=== PATIENT | male | born 1990 | race Caucasian/White ===

== ENCOUNTER 2021-01-29 18:55 | Emergency (ER) | payer SELFPAY ==
--- NOTE | ~2021-01-29 | XR_ITS ---
Examination: XR hand LT 2V, XR hand RT 2V Indication: r/o fb Comparison: No pertinent prior studies are currently available for comparison. Technique: 3 plain film views of each hand obtained. Findings: Bones are normal anatomic alignment. I do not appreciate any acute fracture or dislocation. No bony destructive lesions or periosteal reaction. No radiopaque foreign body seen. No soft tissue gas. XR/XR hand LT 2V Impression: No acute bony abnormality. No radiopaque foreign body seen.
--- NOTE | ~2021-01-29 | XR_ITS ---
Examination: XR hand LT 2V, XR hand RT 2V Indication: r/o fb Comparison: No pertinent prior studies are currently available for comparison. Technique: 3 plain film views of each hand obtained. Findings: Bones are normal anatomic alignment. I do not appreciate any acute fracture or dislocation. No bony destructive lesions or periosteal reaction. No radiopaque foreign body seen. No soft tissue gas. XR/XR hand RT 2V Impression: No acute bony abnormality. No radiopaque foreign body seen.
[2021-01-29 19:27] VITALS: BP 105/69; PULSE 62; RESP 18; TEMP 37; O2SAT 98; BMI 23.0
--- NOTE | 2021-01-29 20:36 | ED_ITS ---
HPI - Extremity Problem General Chief complaint: Extremity Injury, Upper Stated complaint: glass in finger Time Seen by Provider: 01/29/21 20:03 Source: patient Mode of arrival: ambulatory Limitations: no limitations History of Present Illness HPI Narrative: 30-year-old male here with multiple complaints. Patient tells me that he feels like he has a piece of glass in his right index finger. He was removing a piece of glass from his girlfriend's foot when he feels like it went into his finger. He thinks it has been there for days. He also has a splinter on the left palm. He is unsure how long this has been there for. Related Data Allergies Allergy/AdvReac Type Severity Reaction Status Date / Time No Known Allergies Allergy Verified 01/29/21 19:26 Review of Systems Review of Systems: Yes all other systems are reviewed and are negative Constitutional: Constitutional: Reports no additional constitutional complaints, Denies body ache(s), Denies chills, Denies fever(s), Denies headache(s) and Denies weakness Eyes: Eyes: Reports no additional eye complaints and Denies change in vision ENT: Reports system reviewed and no additional complaints, except as documented, Denies dizziness, Denies headache(s), Denies nasal congestion, Denies nasal discharge and Denies neck pain Cardiovascular: Cardiovascular: Reports no additional cardiovascular complaints, Denies chest pain, Denies leg edema and Denies dyspnea Respiratory: Respiratory: Reports no additional respiratory complaints, Denies cough and Denies dyspnea Gastrointestinal: Gastrointestinal: Reports no additional gastrointestinal complaints, Denies abdominal pain, Denies diarrhea, Denies nausea and Denies vomiting Genitourinary: Genitourinary: Denies urinary incontinence Musculoskeletal: Musculoskeletal: Reports no additional musculoskeletal complaints, Denies back pain, Denies arthralgias, Denies joint swelling, Denies neck pain, Denies numbness and Denies tingling Integumentary/Breasts: Skin/Breast: Reports system reviewed and no additional complaints, except as docu and Denies rash Neurologic: Reports system reviewed and no additional complaints, except as documented, Denies Abnormal speech present, Denies dizziness, Denies headache(s), Denies numbness, Denies tingling and Denies weakness [facility] Past Medical History Attestation statement: The following information was validated with the patient. Source: old records reviewed and nursing notes reviewed Medical History Asthma Social History Social History Advance Directives: No Advance Directives Information Provided: No Physical Exam Vital Signs: Vital Signs: Last Vital Signs Temp 98.6 F 01/29/21 19:27 Pulse 62 01/29/21 19:27 Resp 18 01/29/21 19:27 BP 105/69 01/29/21 19:27 Pulse Ox 98 01/29/21 19:27 Body Mass Index 23.0 Const: General: cooperative, healthy appearing, comfortable and no acute dis tress Orientation/consciousness: patient oriented x3 Limitations: no limitations HENMT: Head: Yes normal to inspection Ears: hearing grossly normal bilaterally General nose exam: Normal external nose present Face and sinus: Yes normal facial exam Mouth: Normal oral and palatal mucosa present Throat: Yes posterior oropharynx normal Eyes: General: appearance normal, both eyes and all related structures Pupils: Equal, round and reactive pupils present Neck: Neck: Yes normal visual inspection Chest: Chest palpation & inspection: normal inspection of the chest Resp: Effort & Inspection: normal respiratory effort Auscultation: clear to auscultation bilaterally Cardio: Rate: regular rate Rhythm: regular rhythm Peripheral pulses: Peripheral pulses 2+ throughout GI: Inspection: Yes normal to inspection Palpation (GI): Soft to palpation and nontender Auscultation: normal bowel sounds Back/Spine/Pelvis: Thoracic/Lumbar Spine: thoracic and lumbar spine normal to inspection Skin: General skin exam: no rashes or lesions noted Neuro: General: patient oriented x3, no focal motor deficits and normal sensation to monofilament Cranial nerves: Yes Equal, round and reactive pupils present Cognition (Neuro): normal cognition Speech: No Abnormal speech present Gait exam (Neuro): Normal gait present Motor exam (neuro): 5/5 motor strength present throughout Extrem: Other: On the right hand over the volar aspect of the right index finger there is a small abrasion. There is no palpable foreign body. Full range of motion with no difficulty To the left palmar aspect there is a small splinter in the subcutaneous tissue. No local swelling, redness or drainage General: Yes normal to inspection Course Course Course Narrative: Patient here with concern over foreign body to right index finger and left hand. X-rays of the right hand show no foreign body. On clinical exam there is no findings of foreign body. The left hand is negative for foreign body. There is a small superficial wooden splinter to the left palmar aspect. I did explain to the patient that he can use warm compresses and remove this at home with tweezers. If not the body will expel it naturally. Reviewed worrisome signs and symptoms and when to return to the emergency department. Comfortable discharge home. MDM - Extremity (Nontraumatic) Medical Records Attestation: I reviewed the patient's medical records. Lab Data Attestation: I reviewed the patient's lab results. Imaging Data hand x-ray left : Attestation: I personally reviewed and interpreted this imaging study as follows: Radiologist's impression: Findings: Bones are normal anatomic alignment. I do not appreciate any acute fracture or dislocation. No bony destructive lesions or periosteal reaction. No radiopaque foreign body seen. No soft tissue gas. XR/XR hand LT 2V Impression: No acute bony abnormality. No radiopaque foreign body seen. hand x-ray right: Attestation: I personally reviewed and interpreted this imaging study as follows: Radiologist's impression: Examination: XR hand LT 2V, XR hand RT 2V Indication: r/o fb Comparison: No pertinent prior studies are currently available for comparison. Technique: 3 plain film views of each hand obtained. Findings: Bones are normal anatomic alignment. I do not appreciate any acute fracture or dislocation. No bony destructive lesions or periosteal reaction. No radiopaque foreign body seen. No soft tissue gas. XR/XR hand RT 2V Impression: No acute bony abnormality. No radiopaque foreign body seen. Discharge Plan Discharge Clinical Impression: Splinter of hand Qualifiers: Encounter type: initial encounter Laterality: left Qualified Code(s): S60.552A - Superficial foreign body of left hand, initial encounter Patient Disposition: Home, Self-Care Instructions: Soft Tissue Foreign Body (ED) Additional Instructions: You have a splinter in her left hand. Warm compresses several times a day X-ray of your right hand shows no obvious glass Referrals: Physician,None [Primary Care Provider] - 2 days Interventions: ED Discharge Assessment Last Done: 01/29/21 20:14 Discharge Date/Time: 01/29/21 20:15
== END 2021-01-29 20:15 | disposition home or self-care (01) ==
PROVIDERS: Emergency Provider Emergency Medicine
DX: S60.552A Superficial foreign body of left hand, initial encounter (principal); S60.410A Abrasion of right index finger, initial encounter; W45.8XXA Other foreign body or object entering through skin, initial encounter; Y93.9 Activity, unspecified; Y92.9 Unspecified place or not applicable; Y99.9 Unspecified external cause status
CPT/HCPCS: 73120; 99283